=== PATIENT | male | born 1995 | race Caucasian/White ===

== ENCOUNTER → 2017-10-13 16:33 | Outpatient (CLI) | payer BC, OTHER, MEDICAID, SELFPAY ==
--- NOTE | 2017-10-20 17:43 | PM.PFT.1 ---
Pulmonary Function Test Referral & Results Date Patient Seen: 10/13/17 Requesting provider: Florentino Cuadra Results: The spirometry demonstrates an FVC of 3.33 L which is 67% of predicted. The FEV1 was measured at 1.94 L which is 46% of predicted. The FEV1/FVC ratio was 58 which is 70% of predicted. Following the administration of bronchodilator there was at 36% improvement in FEV1 and 11% improvement in FEV1/FVC ratio. There is also a 121% improvement in FEF 25-75%. . Lung volumes show an SVC of 3.82 L which is 79% of predicted. The diffusing capacity was measured at 38.97 which is 144% of predicted. The maximum voluntary ventilation was reduced. Interpretation: This study demonstrates severe obstructive lung disease with evidence of significant benefit following bronchodilator There is also mild restrictive lung disease present
== END ==
PROVIDERS: PCP Family Medicine; Visit Provider Family Medicine
DX: R06.02 Shortness of breath (principal)
CPT/HCPCS: 94010; 94060; 94726; 94729

== ENCOUNTER → 2021-08-16 13:22 | Outpatient (CLI) | payer OTHER, MEDICAID, SELFPAY ==
[2021-08-16 15:00] LABS: Urine N gonorrhoeae NOT DETECTED
[2021-08-16 15:04] LABS: Urine Chlamydia NOT DETECTED
== END ==
PROVIDERS: PCP Family Medicine; Visit Provider Nurse Practitioner Family
DX: Z13.9 Encounter for screening, unspecified (principal); Z20.2 Contact with and (suspected) exposure to infections with a predominantly sexual mode of transmission
CPT/HCPCS: 87491; 87591

== ENCOUNTER → 2021-08-16 13:29 | Outpatient (CLI) | payer OTHER, MEDICAID, SELFPAY ==
[2021-08-16 16:50] LABS: Hepatitis B Surface Antigen NEGATIVE s/c (NEGATIVE)
[2021-08-16 17:08] LABS: HIV 1 & 2 Ab/Ag 4th Gen Combo NEGATIVE (NEGATIVE); Hep C Virus Ab w/Reflex Quant NEGATIVE s/c (NEGATIVE)
[2021-08-17 04:41] LABS: RPR Screen Non Reactive (Non Reactive)
[2021-08-17 08:10] LABS: HSV 2 IGG AB < 0.91 index (0.00-0.90); HSV1IGG < 0.91 index (0.00-0.90)
[2021-08-17 13:36] LABS: HSV I/II IgM <0.91 Ratio (0.00-0.90)
== END ==
PROVIDERS: PCP Family Medicine; Referring Provider Nurse Practitioner Family; Visit Provider Nurse Practitioner Family
DX: Z20.2 Contact with and (suspected) exposure to infections with a predominantly sexual mode of transmission (principal); Z13.9 Encounter for screening, unspecified
CPT/HCPCS: 36415; 86592; 86694; 86695; 86696; 86803; 87340; 87389; 87491; 87591

== ENCOUNTER → 2022-03-07 10:25 | Outpatient (CLI) | payer OTHER, MEDICAID, SELFPAY ==
[2022-03-07 12:33] LABS: Influenza A - CEPHEID Flu A NEGATIVE (NEGATIVE); Influenza B - CEPHEID Flu B NEGATIVE (NEGATIVE); Respiratory Syncytial Virus Negative (Negative)
[2022-03-07 12:41] LABS: COVID-19 CEPHEID 4-PLEX PCR Negative (Negative)
== END ==
PROVIDERS: PCP Family Medicine; Visit Provider Registered Nurse
DX: R05.1 Acute cough (principal); Z20.822 Contact with and (suspected) exposure to COVID-19
CPT/HCPCS: 0241U

== ENCOUNTER → 2022-05-31 08:54 | Outpatient (CLI) | payer OTHER, MEDICAID, SELFPAY ==
--- NOTE | 2022-05-31 08:55 | DI.RAD.S_ITS ---
PROCEDURE: XR CHEST 2V INDICATIONS: hemoptysis TECHNIQUE: 2 views of the chest were acquired. COMPARISON: None. FINDINGS: Surgical changes and devices: None. Lungs and pleura: Lungs are clear. No pleural effusions or pneumothorax. Mediastinum: Mediastinal contours are normal. Heart size is normal. Bones and chest wall: No suspicious bony abnormalities. Soft tissues appear unremarkable. IMPRESSION: No acute cardiopulmonary process. Dictated by: Douglas Wooten M.D. on 05/31/2022 at 9:20 Approved by: Douglas Wooten M.D. on 05/31/2022 at 9:20
[2022-05-31 09:29] LABS: Hematocrit 43.6 % (41-53); Hemoglobin 14.6 g/dL (13.5-17.5); Mean Corpuscular HGB Conc 33.6 % (30-36); Mean Corpuscular Hemoglobin 28.7 PG (26-34); Mean Corpuscular Volume 85.4 fL (80-100); Platelet Count 209 X10^3/uL (150-400); Red Cell Distribution Width 15.1 % (11.6-14.8); White Blood Cell Count 9.4 X10^3/uL (4.5-11.0)
[2022-05-31 09:39] LABS: INR 1.1 (0.9-1.3); Prothrombin Time 12.9 SECONDS (10.1-12.7)
[2022-05-31 09:42] LABS: PTT Partial Thromboplastin Tim 35 SECONDS (26-36)
== END ==
PROVIDERS: PCP Family Medicine; Referring Provider Physician Assistant; Visit Provider Physician Assistant
DX: R04.2 Hemoptysis (principal)
CPT/HCPCS: 36415; 71046; 85027; 85610; 85730

== ENCOUNTER → 2022-06-07 09:43 | Outpatient (CLI) | payer OTHER, MEDICAID, SELFPAY ==
[2022-06-07 10:04] LABS: Add Manual Diff / Slide Review NO; Basophils Absolute Auto 100 /uL (0-100); Basophils Percent Auto 0.9 % (0-2); Eosinophils Absolute Auto 100 /uL (0-450); Eosinophils Percent Auto 1.6 % (2-4); Hematocrit 45.2 % (41-53); Hemoglobin 15.6 g/dL (13.5-17.5); Lymphocytes Absolute Auto 2600 /uL (1100-4500); Lymphocytes Percent Auto 34.9 % (25-40); Mean Corpuscular HGB Conc 34.4 % (30-36); Mean Corpuscular Hemoglobin 28.9 PG (26-34); Monocytes Absolute Auto 600 /uL (0-900); Monocytes Percent Auto 7.4 % (3-14); Neutrophils Absolute Auto 4100 /uL (1500-7000); Neutrophils Percent Auto 55.2 % (50-75); Platelet Count 229 X10^3/uL (150-400); Red Blood Cell Count 5.38 X10^6/uL (4.5-5.9); Red Cell Distribution Width 14.1 % (11.6-14.8); White Blood Cell Count 7.5 X10^3/uL (4.5-11.0)
[2022-06-07 10:17] LABS: BUN Creatinine Ratio 19.2 (6-22); Blood Urea Nitrogen 20 mg/dL (9-20); Calcium 9.4 mg/dL (8.4-10.2); Carbon Dioxide 30 mmol/L (22-32); Chloride 99 mmol/L (98-107); Cholesterol 230 mg/dL (140-199); Estimated Glomerular Filt Rate > 60 mL/min (>60); Glucose 90 mg/dL (70-100); HDL Cholesterol 43 mg/dL (40-60); HEMOLYSIS < 15 (0-50); LDL Cholesterol Calculated 165 mg/dL (<100); Potassium 4.3 mmol/L (3.4-5.1); Sodium 139 mmol/L (137-145); Triglycerides 112 mg/dL (35-150)
[2022-06-07 14:28] LABS: Alanine Aminotransferase 36 IU/L (<50); Aspartate Aminotransferase 32 IU/L (17-59)
== END ==
PROVIDERS: PCP Family Medicine; Referring Provider Family Medicine; Visit Provider Family Medicine
DX: E66.9 Obesity, unspecified (principal); Z68.41 Body mass index [BMI] 40.0-44.9, adult
CPT/HCPCS: 36415; 80048; 80061; 84450; 84460; 85025